=== PATIENT | female | born 1985 | race Hispanic/Latino ===

== ENCOUNTER 2022-08-24 12:46 | Outpatient (CLI) | payer OTHER, SELFPAY ==
--- NOTE | ~2022-08-24 | US_ITS ---
EXAMINATION: US pelvic complete w TV DATE: 08/24/2022 13:38 INDICATION: Pelvic pain Comparison:No prior studies for comparison. TECHNIQUE: Multiple transabdominal sonographic images of the pelvis performed. FINDINGS: The uterus measures 12.6 x 7.9 x 5.3 cm. The endometrial complex measures 1.4 cm. There are nabothian cysts. The right ovary measures 3.3 x 3 x 1.9 cm and the left ovary measures 2.8 x 2.2 x 2.7 cm. There are small follicles in each ovary. Normal doppler signal in both ovaries. There is no free fluid in the pelvis. There are no abnormal masses seen on either side. IMPRESSION: 1. Enlarged uterus with endometrial thickening measuring 1.4 cm. Reviewed, dictated and finalized at location B.
== END 2022-08-24 12:47 | disposition home or self-care (01) ==
LOC: ANHIMG 12:57
PROVIDERS: PCP Registered Nurse; Visit Provider Registered Nurse
DX: N94.0 Mittelschmerz (principal)
CPT/HCPCS: 76830; 76856

== ENCOUNTER 2023-04-14 10:02 | Emergency (ER) | payer OTHER, SELFPAY ==
--- NOTE | ~2023-04-14 | XR_ITS ---
EXAMINATION: XR chest 2V DATE: 04/14/2023 10:52 INDICATION: Cough with chest tightness TECHNIQUE: PA and lateral views of the chest are obtained. COMPARISON: None available FINDINGS: The lungs are free of acute opacities. No pleural effusion or pneumothorax. The cardiomedia stinal silhouette is normal. The visualized bones and soft tissues are unremarkable. IMPRESSION: 1. No acute cardiopulmonary abnormality. Reviewed, dictated and finalized at location B. 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
[2023-04-14 10:17] VITALS: BP 131/69; PULSE 85; RESP 16; TEMP 36.4; O2SAT 99
--- NOTE | 2023-04-14 11:24 | ED.URI ---
HPI - URI/Sore Throat General Chief Complaint: Upper Respiratory Infection Stated Complaint: cough,chest/back pain Source: patient Mode of arrival: ambulatory Limitations: no limitations History of Present Illness HPI Narrative: 37-year-old female presented for complaints of cough and nasal congestion for about 3 days. She endorses right chest and right upper back pain, and tightness with deep breath. She is not taking anything for symptoms. Denies wheezing, nausea, vomiting, diarrhea, fevers or chills. Related Data Allergies Allergy/AdvReac Type Severity Reaction Status Date / Time Penicillins Allergy Hives Verified 04/14/23 10:42 Review of Systems Review of Systems: CONSTITUTIONAL: Denies body aches, fever, chills, or sweats. EYES: Denies visual changes, redness, or discharge. ENT: Denies rhinorrhea, congestion, sore throat, or otalgia. CARDIOVASCULAR: Denies chest pain, palpitations, or edema. RESPIRATORY: Reports cough, denies sob, wheezing. GASTROINTESTINAL: Denies abdominal pain, nausea, vomiting, or diarrhea. SKIN: Denies rash, itching, or wounds. MUSCULOSKELETAL: reports right upper back pain NEUROLOGIC: Denies headache, numbness, tingling, or weakness. All systems reviewed & are unremarkable except as noted in HPI and below PMFSH Past Medical History Medical History (Updated 04/14/23 @ 16:05 by Leticia Hart APRN) No pertinent past medical history Comments At time of signature, I have reviewed and agree with nursing past medical, surgical, social and family history unless otherwise noted. Please see nursing chart for further information. There is no relevant family history pertinent to the presenting complaint Exam Narrative: GENERAL: appears in pain; in no acute distress. EYES: EOMI. No redness or drainage. Conjunctivae normal. ENT: Mucous membranes pink and moist. No rhinorrhea. TMs normal bilaterally. Throat normal. Uvula midline. NECK: Normal AROM. CHEST: No respiratory distress. lungs clear to all echols. No cough during exam. HEART: Regular rate and rhythm. No murmur appreciated. ABDOMEN: Soft, nontender, nondistended, normal active bowel sounds. MUSC: right scapular area and right anterior chest tender with palpation. Normal range of motion. No edema. SKIN: Warm, dry, no rash. Capillary refill normal. Normal skin turgor. NEURO: Alert and oriented x3. Gait steady. PSYCH: Normal affect. Course Course Emergency Course: Patient is aware of diagnosis, understands and agrees to treatment plan. Anticipatory guidance given. Patient agrees to follow-up as directed and is aware of reasons to seek care at the emergency department. Portions of this record may have been created with voice recognition software Level of Care: Express Care Visit Vital Signs Vital signs: Vital Signs Temperature 97.6 F 04/14/23 10:17 Pulse Rate 85 04/14/23 10:17 Respiratory Rate 16 04/14/23 10:17 Blood Pressure 131/69 04/14/23 10:17 Pulse Oximetry 99 04/14/23 10:17 Oxygen Delivery Room Air 04/14/23 10:17 Temperature 97.6 F 04/14/23 10:17 Pulse Rate 85 04/14/23 10:17 Respiratory Rate 16 04/14/23 10:17 Blood Pressure 131/69 04/14/23 10:17 Pulse Oximetry 99 04/14/23 10:17 Oxygen Delivery Room Air 04/14/23 10:17 MDM - URI/Sore Throat MDM Narrative Medical decision making narrative: Discussed physical exam findings and reviewed CXR result. Advised supportive measures and signs/symptoms to go to the ER. Pt is appropriate for outpt treatment and f/u. Differential Diagnosis Differential diagnosis: Likely upper respiratory infection, viral infection and bronchitis Imaging Data Radiologist's impression: Patient: Cleopatra Skinner : 1985 MR#: [id number] Age: 37 Acct:[id number] Loc: [facility]? ? ADM Date: 04/14/23Attending Dr: Ordering Physician: Leticia Hart APRN Date of Service: 04/14/23 Procedure(s): XR chest 2V Accession
== END 2023-04-14 11:42 | disposition home or self-care (01) ==
PROVIDERS: Emergency Provider Nurse Practitioner Family; PCP Registered Nurse
DX: J40 Bronchitis, not specified as acute or chronic (principal)
CPT/HCPCS: 71046; 99213; G0463

== ENCOUNTER 2023-12-04 17:46 | Emergency (ER) | payer OTHER, SELFPAY ==
[2023-12-04 17:52] VITALS: BP 118/42; PULSE 85; RESP 16; TEMP 37.1; O2SAT 100
--- NOTE | 2023-12-04 18:08 | ED.WOUNDLAC ---
HPI - Wound/Laceration General Chief Complaint: Wound/Laceration Stated Complaint: right middle finger cut Time Seen by Provider: 12/04/23 18:08 Source: patient Mode of arrival: ambulatory Limitations: language barrier (Binding Bench Worker utilized) History of Present Illness HPI narrative: Patient presents with complaints of right 3rd finger pain. She reports that about 10:00 a.m. this morning she was catching money out at a gambling facility. Part of the machine hit the nail, causing it to come off. She arrives with a bandage in place. No active bleeding. No other injury or trauma. No other concerns. No laceration Related Data Allergies Allergy/AdvReac Type Severity Reaction Status Date / Time Penicillins Allergy Hives Verified 12/04/23 17:52 Review of Systems Review of Systems: All systems reviewed & are unremarkable except as noted in HPI and below Constitutional: Constitutional: Reports no additional constitutional complaints ENT: Reports system reviewed and no additional complaints, except as documented Cardiovascular: Cardiovascular: Reports no additional cardiovascular complaints Respiratory: Respiratory: Reports no additional respiratory complaints Gastrointestinal: Gastrointestinal: Reports no additional gastrointestinal complaints Integumentary/Breasts: Skin/Breast: Reports system reviewed and no additional complaints, except as docu and Reports as per HPI [facility] Past Medical History Medical History No pertinent past medical history Exam Const: General: cooperative, no acute distress, alert and awake Orientation/consciousness: oriented to person, oriented to place and oriented to time HENMT: Head: normal to inspection Resp: Effort & Inspection: normal respiratory effort and able to speak in complete sentences Auscultation: clear to auscultation bilaterally, no crackles, no rales, no rhonchi and no wheezes Cardio: Palpation: normal PMI Rate: regular rate Rhythm: regular rhythm Heart sounds: S1 normal heart sound present and S2 normal heart sound present Skin: Nails: other (Avulsion right 3rd fingernail) Neuro: General: oriented to person, oriented to place and oriented to time Cranial nerves: Yes CN's II-XII intact bilaterally Psych: Appearance: grossly normal Thought process: Normal thought process present Insight: Good insight present (Psych) Judgement: Good judgement present (Psych) Course Course Level of Care: Express Care Visit Vital Signs Vital signs: Vital Signs Temperature 98.7 F 12/04/23 17:52 Pulse Rate 85 12/04/23 17:52 Respiratory Rate 16 12/04/23 17:52 Blood Pressure 118/42 L 12/04/23 17:52 Pulse Oximetry 100 12/04/23 17:52 Oxygen Delivery Room Air 12/04/23 17:52 Temperature 98.7 F 12/04/23 17:52 Pulse Rate 85 12/04/23 17:52 Respiratory Rate 16 12/04/23 17:52 Blood Pressure 118/42 L 12/04/23 17:52 Pulse Oximetry 100 12/04/23 17:52 Oxygen Delivery Room Air 12/04/23 17:52 MDM - Wound/Laceration MDM Narrative Medical decision making narrative: Patient with a complete avulsion of right 3rd fingernail. No associated laceration. No active bleeding. Wound dressed and splint provided for comfort. Discharge instructions reviewed with patient, as well as provided in writing per nursing staff. The instructions also include specific and strict return/GO TO THE ER as well as f/u information. All questions have been answered, and the patient deny any further questions with discharge and discharge plan. Some parts of this dictation were generated by voice recognition software and may contain typographical and/or grammatical inaccuracies. Medical Records Attestation: I reviewed the patient's medical records. Discharge Plan Discharge Clinical Impression: Avulsion of nail Patient Disposition: Home, Self-Care Condition: Stable Instructions: Antibiotic Form, Acute Wound
== END 2023-12-04 18:50 | disposition home or self-care (01) ==
PROVIDERS: Emergency Provider Nurse Practitioner Family; PCP Registered Nurse
DX: S61.302A Unspecified open wound of right middle finger with damage to nail, initial encounter (principal); W31.89XA Contact with other specified machinery, initial encounter
CPT/HCPCS: 29130; 99212; G0463